=== PATIENT | male | born 1945 | race Caucasian/White ===

== ENCOUNTER → 2020-03-12 | Day surgery (SDC) | payer MEDICARE ==
[2020-03-09 14:15] LABS: BASOPHILS # (AUTO) 0.1 (0.0-0.1); BASOPHILS % 1.2 % (0.0-1.0); EOSINOPHILS # (AUTO) 0.3 (0.0-0.4); EOSINOPHILS % 3.4 % (0.0-6.0); HEMATOCRIT 42.1 % (38.2-49.6); HEMOGLOBIN 13.9 g/dL (14.0-18.0); LYMPHOCYTES # (AUTO) 3.4 (1.0-3.2); LYMPHOCYTES % 37.5 % (18.0-39.1); MEAN CORPUSCULAR HEMOGLOBIN 29.8 pg (28-32); MEAN CORPUSCULAR VOLUME 90.1 fL (81-99); NEUTROPHILS # (AUTO) 4.2 (2.1-6.9); NEUTROPHILS % 45.7 % (38.7-80.0); PLATELET COUNT 181 x10e3/uL (140-360); RED BLOOD COUNT 4.67 x10e6/uL (4.3-5.7); RED CELL DISTRIBUTION WIDTH 13.2 % (11.7-14.4)
[~2020-03-12] MED LIST: ALFUZOSIN HCL10 MG; ALPHA LIPOIC A200 M1 PO; AMLODIPINE BESYL5 MG PO; APRISO0.375 GM PO; ASPIRIN81 M1 PO; BUPIVACAINE 0.25% 30ML SDV ONE; CARVEDILOL12.5 MG PO; DEXAMETHASONE SOD PHOS 10 MG/1 ML VIAL ONE; ETODOLAC500 M1 PO; FENTANYL CITRATE/PF 100MCG/2 ML INJ ONE; GLIMEPIRIDE2 MG PO; HYDROCODON-ACE1 EA11 PO; IBUPROFEN; IOPAMIDOL 200 MG/ML 20 ML VIAL IT ONE; IRON PO; LIDOCAINE HCL 1% 30ML-PF VIAL ONE; LIDOCAINE HCL 2% LOCAL INJ 5 ML SDV VIAL INJ ONE; LISINOPRIL10 MG PO; LISINOPRIL2.5 MG PO; METFORMIN HCL500 MG PO; NORCO 10-325 T1 EACH PO; PIOGLITAZONE HC45 MG PO; PROPOFOL IV EMULSION 10 MG/ML 20 ML VIAL ONE; TYLENOL EXTRA500 MG PO
[2020-03-12 07:05] VITALS: BP 123/73
== END | disposition home or self-care (01) ==
LOC: OR 05:23
PROVIDERS: ATTEND Physical Medicine & Rehabilitation Pain Medicine
DX: M54.16 Radiculopathy, lumbar region (principal); M47.896 Other spondylosis, lumbar region; M48.061 Spinal stenosis, lumbar region without neurogenic claudication; G62.9 Polyneuropathy, unspecified; M46.1 Sacroiliitis, not elsewhere classified; Z98.1 Arthrodesis status; I10 Essential (primary) hypertension; K21.9 Gastro-esophageal reflux disease without esophagitis; K50.90 Crohn's disease, unspecified, without complications; I44.0 Atrioventricular block, first degree; Z01.810 Encounter for preprocedural cardiovascular examination; Z01.812 Encounter for preprocedural laboratory examination; Z20.828 Contact with and (suspected) exposure to other viral communicable diseases
CPT/HCPCS: 36415 ×2; 64483; 64484 ×4; 82948; 85025; 93005; J1100; J2001 ×2; J2704; J3010; Q9967; U0002; 77003

== ENCOUNTER → 2020-04-23 | Day surgery (SDC) | payer MEDICARE ==
[2020-04-20 11:48] LABS: BASOPHILS # (AUTO) 0.1 (0.0-0.1); EOSINOPHILS # (AUTO) 0.2 (0.0-0.4); EOSINOPHILS % 2.6 % (0.0-6.0); HEMATOCRIT 42.6 % (38.2-49.6); HEMOGLOBIN 14.3 g/dL (14.0-18.0); LYMPHOCYTES # (AUTO) 3.4 (1.0-3.2); LYMPHOCYTES % 38.3 % (18.0-39.1); MEAN CORPUSCULAR HEMOGLOBIN 30.2 pg (28-32); MEAN CORPUSCULAR HGB CONC 33.6 g/dL (31-35); MEAN CORPUSCULAR VOLUME 90.1 fL (81-99); MONOCYTES # (AUTO) 0.9 (0.2-0.8); MONOCYTES % 9.7 % (4.4-11.3); NEUTROPHILS # (AUTO) 4.2 (2.1-6.9); NEUTROPHILS % 46.9 % (38.7-80.0); PLATELET COUNT 178 x10e3/uL (140-360); RED BLOOD COUNT 4.73 x10e6/uL (4.3-5.7); RED CELL DISTRIBUTION WIDTH 13.2 % (11.7-14.4)
[~2020-04-23] MED LIST changes: -FENTANYL CITRATE/PF 100MCG/2 ML INJ ONE; -LIDOCAINE HCL 2% LOCAL INJ 5 ML SDV VIAL INJ ONE; +TRIAMCINOLONE ACET 40 MG/ML VIAL ONE
[2020-04-23 07:20] VITALS: BP 128/73
== END | disposition home or self-care (01) ==
LOC: OR 05:20
PROVIDERS: ATTEND Physical Medicine & Rehabilitation Pain Medicine
DX: M54.16 Radiculopathy, lumbar region (principal); M48.061 Spinal stenosis, lumbar region without neurogenic claudication; M46.1 Sacroiliitis, not elsewhere classified; G62.9 Polyneuropathy, unspecified; R93.7 Abnormal findings on diagnostic imaging of other parts of musculoskeletal system; I44.0 Atrioventricular block, first degree; E11.9 Type 2 diabetes mellitus without complications; E66.01 Morbid (severe) obesity due to excess calories; I10 Essential (primary) hypertension; Z01.812 Encounter for preprocedural laboratory examination; Z20.822 Contact with and (suspected) exposure to COVID-19; Z79.84 Long term (current) use of oral hypoglycemic drugs
CPT/HCPCS: 36415 ×2; 64483; 64484 ×2; 82948; 85025; J1100; J2001; J2704; J3301; Q9967; U0002; 77003

== ENCOUNTER → 2020-10-22 | Day surgery (SDC) | payer MEDICARE ==
[2020-10-19 11:16] LABS: BASOPHILS # (AUTO) 0.1 (0.0-0.1); BASOPHILS % 1.2 % (0.0-1.0); EOSINOPHILS # (AUTO) 0.2 (0.0-0.4); EOSINOPHILS % 2.3 % (0.0-6.0); HEMATOCRIT 40.8 % (38.2-49.6); HEMOGLOBIN 13.4 g/dL (14.0-18.0); LYMPHOCYTES # (AUTO) 2.9 (1.0-3.2); LYMPHOCYTES % 34.6 % (18.0-39.1); MEAN CORPUSCULAR HEMOGLOBIN 30.1 pg (28-32); MEAN CORPUSCULAR HGB CONC 32.8 g/dL (31-35); MEAN CORPUSCULAR VOLUME 91.7 fL (81-99); MONOCYTES # (AUTO) 0.7 (0.2-0.8); MONOCYTES % 8.1 % (4.4-11.3); NEUTROPHILS # (AUTO) 4.4 (2.1-6.9); NEUTROPHILS % 52.1 % (38.7-80.0); PLATELET COUNT 187 x10e3/uL (140-360); RED BLOOD COUNT 4.45 x10e6/uL (4.3-5.7); RED CELL DISTRIBUTION WIDTH 13.1 % (11.7-14.4)
[~2020-10-22] MED LIST changes: -ALFUZOSIN HCL10 MG; +ALFUZOSIN HCL10 MG PO; -BUPIVACAINE 0.25% 30ML SDV ONE; -DEXAMETHASONE SOD PHOS 10 MG/1 ML VIAL ONE; +FENOFIBRATE145 MG PO; +FENTANYL CITRATE/PF 100MCG/2 ML INJ ONE; +LIDOCAINE HCL 2% LOCAL INJ 5 ML SDV VIAL INJ ONE; +MIDAZOLAM HCL 2 MG/2 ML VIAL ONE; +OMEPRAZOLE40 MG PO; -PROPOFOL IV EMULSION 10 MG/ML 20 ML VIAL ONE
[2020-10-22 08:20] VITALS: BP 118/67
== END | disposition home or self-care (01) ==
LOC: OR 05:59
PROVIDERS: ATTEND Physical Medicine & Rehabilitation Pain Medicine
DX: M47.896 Other spondylosis, lumbar region (principal); M54.16 Radiculopathy, lumbar region; M48.00 Spinal stenosis, site unspecified; G62.9 Polyneuropathy, unspecified; M46.1 Sacroiliitis, not elsewhere classified; G47.33 Obstructive sleep apnea (adult) (pediatric); I10 Essential (primary) hypertension; E11.9 Type 2 diabetes mellitus without complications; K21.9 Gastro-esophageal reflux disease without esophagitis; K50.90 Crohn's disease, unspecified, without complications; Z01.810 Encounter for preprocedural cardiovascular examination; Z01.812 Encounter for preprocedural laboratory examination; Z79.84 Long term (current) use of oral hypoglycemic drugs; Z87.442 Personal history of urinary calculi
CPT/HCPCS: 36415 ×2; 64493; 64494; 64495; 77003; 82948; 85025; 93005; J2001 ×2; J2250; J3010; J3301; Q9967

== ENCOUNTER 2022-09-29 05:22 | Observation (INO) | payer MEDICARE ==
[2022-09-28 10:51] LABS: BASOPHILS # (AUTO) 0.1 (0.0-0.1); BASOPHILS % 1.4 % (0.0-1.0); EOSINOPHILS # (AUTO) 0.3 (0.0-0.4); HEMOGLOBIN 12.2 g/dL (14.0-18.0); LYMPHOCYTES # (AUTO) 3.1 (1.0-3.2); LYMPHOCYTES % 34.6 % (18.0-39.1); MEAN CORPUSCULAR HEMOGLOBIN 29.8 pg (28-32); MEAN CORPUSCULAR VOLUME 90.2 fL (81-99); MONOCYTES # (AUTO) 0.8 (0.2-0.8); MONOCYTES % 9.2 % (4.4-11.3); NEUTROPHILS # (AUTO) 4.4 (2.1-6.9); NEUTROPHILS % 49.3 % (38.7-80.0); PLATELET COUNT 247 x10e3/uL (140-360)
[2022-09-28 11:16] LABS: INR 0.95; PROTHROMBIN TIME 13.2 seconds (11.9-14.5)
[2022-09-28 11:17] LABS: PARTIAL THROMBOPLASTIN TIME 32.4 seconds (23.8-35.5)
[2022-09-28 11:32] LABS: ANION GAP 13.9 mmol/L (8-16); CALCIUM 9.4 mg/dL (8.4-10.2); CREATININE, SERUM 1.32 mg/dL (0.72-1.25); POTASSIUM 4.9 mmol/L (3.5-5.1)
[~2022-09-29] VITALS: Ht 177.8 cm; Wt 113.9 kg
[~2022-09-29 05:22] MED LIST changes: -FENTANYL CITRATE/PF 100MCG/2 ML INJ ONE; +FLOMAX0.4 MG PO; +GLUCOTROL XL10 MG PO; +HYDROCHLOROTHIA25 MG PO; -IOPAMIDOL 200 MG/ML 20 ML VIAL IT ONE; +JARDIANCE25 MG PO; -LIDOCAINE HCL 1% 30ML-PF VIAL ONE; -LIDOCAINE HCL 2% LOCAL INJ 5 ML SDV VIAL INJ ONE; -MIDAZOLAM HCL 2 MG/2 ML VIAL ONE; -TRIAMCINOLONE ACET 40 MG/ML VIAL ONE
[2022-09-29] MEDS ORDERED: CEFAZOLIN SODIUM 2 GM ONE (06:14)
[2022-09-29] MEDS ORDERED: LACTATED RINGER'S 1,000 ML ONE (06:14)
[2022-09-29] MEDS ORDERED: ACETAMINOPHEN 1000 MG/100 ML 100 ML IV ONE (06:55)
[2022-09-29] MEDS ORDERED: SUGAMMADEX SODIUM 200 MG/2 ML VIAL IV ONE (06:55)
[2022-09-29] MEDS ORDERED: BUPIVACAINE 0.5%/EPI 30 ML SDV INJ ONE (06:58)
[2022-09-29] MEDS ORDERED: Vancomycin IV 0 MG ONE (06:58)
[2022-09-29] MEDS ORDERED: Vancomycin IV 1 GM VIAL ONE (06:58)
[2022-09-29] MEDS ORDERED: THROMBIN FOR SOLN 5,000 UNIT VIAL ONE (06:58)
[2022-09-29] MEDS ORDERED: PROMETHAZINE HCL (IM) 25 MG/ML VIAL IM PRN ×2 (09:45→11:00)
[2022-09-29] MEDS ORDERED: MAGNESIUM/ALUMINUM/SIMETHICONE 30 ML UDC PO PRN ×2 (09:45→11:00)
[2022-09-29] MEDS ORDERED: ACETAMINOPHEN 325 MG TAB PO PRN ×2 (09:45→11:00)
[2022-09-29] MEDS ORDERED: DEXTROSE 50% SYRINGE 50 ML IV PRN (09:45)
[2022-09-29] MEDS ORDERED: CARISOPRODOL 350 MG TAB PO PRN ×2 (09:45→11:00)
[2022-09-29] MEDS ORDERED: HYDROMORPHONE 2MG/ML 2 MG/ML ML IV PRN ×2 (09:45→11:00)
[2022-09-29] MEDS ORDERED: LACTATED RINGER'S 1,000 ML IV SCH (09:45)
[2022-09-29] MEDS ORDERED: ONDANSETRON HCL INJ 2MG/ML 2ML 2 MG/ML VIAL IV PRN ×2 (09:45→11:00)
[2022-09-29] MEDS ORDERED: ZOLPIDEM TARTRATE 5 MG TAB PO PRN ×2 (09:45→11:00)
[2022-09-29] MEDS ORDERED: Morphine 10mg syringe 10 MG/ML INJ IM PRN (09:45)
[2022-09-29] MEDS ORDERED: HYDROCODON-ACE1 EA12 PO (10:45)
[2022-09-29] MEDS ORDERED: MORPHINE SULFATE 5 MG/ML VIAL IM PRN (11:00)
[2022-09-29] MEDS ORDERED: OXYCODONE/ACETAMINOPHEN 5-325 1 EACH TABLET PO PRN (11:00)
[2022-09-29] MEDS ORDERED: OXYCODONE/ACETAMINOPHEN 5-325 1 EACH TABLET ONE (13:02)
[2022-09-29] MEDS ORDERED: CARISOPRODOL 350 MG TAB ONE (13:02)
[2022-09-29] MEDS ORDERED: SUCCINYLCHOLINE CHLORIDE 20 MG/ML 10ML VIAL ONE (13:23)
[2022-09-29] MEDS ORDERED: SEVOFLURANE INHAL SOLN 250 ML PEN BTL ONE (13:23)
[2022-09-29] MEDS ORDERED: PROPOFOL IV EMULSION 10 MG/ML 20 ML VIAL ONE (13:23)
[2022-09-29] MEDS ORDERED: PHENYLEPHRINE HCL 1% 10 MG/ML VIAL ONE (13:23)
[2022-09-29] MEDS ORDERED: LIDOCAINE HCL 2% LOCAL INJ 5 ML SDV VIAL INJ ONE (13:23)
[2022-09-29] MEDS ORDERED: DEXAMETHASONE SOD PHOS INJ 4 MG/ML SDV ONE (13:23)
[2022-09-29] MEDS ORDERED: ROCURONIUM BROMIDE 10 MG/ML 5ML VIAL IV ONE (13:23)
[2022-09-29] MEDS ORDERED: POVIDONE IODINE 0.05% 0.05 % ML PO ONE (13:23)
[2022-09-29] MEDS ORDERED: ONDANSETRON HCL INJ 2MG/ML 2ML 2 MG/ML VIAL ONE (13:23)
[2022-09-29] MEDS ORDERED: FENTANYL CITRATE/PF 100MCG/2 ML INJ ONE (13:32)
[2022-09-29 14:03] VITALS: BP 136/65; PULSE 96; RESP 18; TEMP 97.9; O2SAT 98
[2022-09-29 15:48] VITALS: BP 136/65; PULSE 96; RESP 18; TEMP 97.9; O2SAT 98
[2022-09-29] MEDS ORDERED: GLIPIZIDE 10 MG PO SCH (17:00)
[2022-09-29] MEDS ORDERED: METFORMIN HCL 500 MG TAB PO SCH (17:00)
[2022-09-29] MEDS ORDERED: GLIPIZIDE 5 MG TAB ER PO SCH (17:00)
[2022-09-29] MEDS ORDERED: CARVEDILOL 12.5 MG TAB PO SCH (17:00)
[2022-09-29] MEDS: LACTATED RINGER'S 1,000 ML IV SCH ×2 (17:58→19:20)
[2022-09-29 20:00] VITALS: BP 153/84; PULSE 95; RESP 20; TEMP 98.6; O2SAT 96
[2022-09-29] MEDS ORDERED: LISINOPRIL 20 MG TAB PO SCH (21:00)
[2022-09-29] MEDS: OXYCODONE/ACETAMINOPHEN 5-325 1 EACH TABLET PO PRN (22:38)
[2022-09-30] VITALS: BP 130/82; PULSE 83; RESP 20; TEMP 97.9; O2SAT 98
[2022-09-30] MEDS: LACTATED RINGER'S 1,000 ML IV SCH (00:19)
[2022-09-30 01:42] VITALS: BP 130/82; PULSE 83; RESP 20; TEMP 97.9; O2SAT 98
[2022-09-30 04:00] VITALS: BP 168/66; PULSE 74; RESP 20; TEMP 97.8; O2SAT 98
[2022-09-30] MEDS: OXYCODONE/ACETAMINOPHEN 5-325 1 EACH TABLET PO PRN (05:57)
[2022-09-30] MEDS ORDERED: FENOFIBRATE 145 MG TAB PO SCH (09:00)
[2022-09-30] MEDS ORDERED: HYDROCHLOROTHIAZIDE 25 MG TAB PO SCH (09:00)
[2022-09-30] MEDS ORDERED: PIOGLITAZONE HCL 15 MG TAB PO SCH (09:00)
[2022-09-30] MEDS ORDERED: TAMSULOSIN HCL 0.4 MG CAP PO SCH (09:00)
== END 2022-09-30 08:20 | disposition home or self-care (01) ==
LOC: OR 05:22 → PACU V 09:36 → MED/SURG 13:52
PROVIDERS: ADMIT Neurological Surgery; ATTEND Neurological Surgery
DX: M48.062 Spinal stenosis, lumbar region with neurogenic claudication (principal); E11.9 Type 2 diabetes mellitus without complications; I10 Essential (primary) hypertension; E78.5 Hyperlipidemia, unspecified; K21.9 Gastro-esophageal reflux disease without esophagitis; N40.0 Benign prostatic hyperplasia without lower urinary tract symptoms; Z01.810 Encounter for preprocedural cardiovascular examination; Z01.812 Encounter for preprocedural laboratory examination; Z01.818 Encounter for other preprocedural examination; Z79.84 Long term (current) use of oral hypoglycemic drugs; Z79.899 Other long term (current) drug therapy; Z68.36 Body mass index [BMI] 36.0-36.9, adult
CPT/HCPCS: 36415 ×3; 63047; 63048; 71046; 72020; 80048; 82948 ×2; 85025; 85610; 85730; 86850; 86900; 88304; 88311; 93005; 97161; G0378 ×2; J0131; J0330; J0690; J1100; J2001; J2370; J2405; J2704; J3010; J3370; J7121